=== PATIENT | female | born 1980 | race Two or more races ===

== ENCOUNTER → 2021-06-01 14:25 | Outpatient (BNVA) | payer OTHER, SELFPAY | PROVIDERS: Visit Provider Internal Medicine | DX: S61.011A Laceration without foreign body of right thumb without damage to nail, initial encounter (principal); W26.8XXA Contact with other sharp object(s), not elsewhere classified, initial encounter | CPT/HCPCS: 12002; 99203 ==

== ENCOUNTER → 2021-06-03 11:56 | Outpatient (BNVA) | payer OTHER, SELFPAY | PROVIDERS: Visit Provider Internal Medicine | DX: S61.011A Laceration without foreign body of right thumb without damage to nail, initial encounter (principal); W26.8XXA Contact with other sharp object(s), not elsewhere classified, initial encounter | CPT/HCPCS: 99213 ==

== ENCOUNTER → 2021-06-04 11:15 | Outpatient (BNVA) | payer OTHER, SELFPAY | PROVIDERS: Visit Provider Internal Medicine | DX: S61.011A Laceration without foreign body of right thumb without damage to nail, initial encounter (principal); W26.8XXA Contact with other sharp object(s), not elsewhere classified, initial encounter; L03.011 Cellulitis of right finger | CPT/HCPCS: 99213 ==

== ENCOUNTER → 2021-06-11 11:10 | Outpatient (BNVA) | payer OTHER, SELFPAY | PROVIDERS: Visit Provider Internal Medicine | DX: S61.011D Laceration without foreign body of right thumb without damage to nail, subsequent encounter (principal); W26.9XXD Contact with unspecified sharp object(s), subsequent encounter | CPT/HCPCS: 99212; 99213 ==